=== PATIENT | male | born 1945 | race Caucasian/White ===

== ENCOUNTER 2018-02-28 08:54 | Emergency (ER) | payer MEDICARE, OTHER ==
[~2018-02-28] VITALS: Ht 172.7 cm; Wt 90.0 kg
[2018-02-28 09:08] VITALS: TEMP 98.7
[2018-02-28 09:34] LABS: BASO % 0.3 % (0.0-2.0); EOS # 0.1 (0.0-0.7); EOS % 0.4 % (0-4.0); GRAN # 12.7 (1.4-6.5); GRAN % 82.2 % (42.2-75.2); HEMATOCRIT 39.8 % (42.0-52.0); HEMOGLOBIN 13.3 g/dl (13.5-18.0); LYMPH # 1.1 (1.2-3.4); MEAN CELL VOLUME 94 fl (80.0-100.0); MEAN CORPUSCULAR HEMOGLOBIN 31 pg (27.0-31.0); MEAN CORPUSCULAR HGB CONC 33 g/dl (33.0-37.0); MEAN PLATELET VOLUME 10.3 fl (7.4-10.4); MONO # 1.5 (0.1-0.6); MONO % 9.7 % (1.7-9.3); PLATELET COUNT 178 K/mm3 (130-400); RED BLOOD COUNT 4.23 M/mm3 (4.20-5.60); REDCELL DISTRIBUTION WIDTH-CV 15.6 % (11.5-14.5)
[2018-02-28] MEDS ORDERED: LASIX 40MG TABL40 MG PO (09:38)
[2018-02-28] MEDS ORDERED: PRINIVIL40 MG PO (09:39)
[2018-02-28] MEDS ORDERED: LEVOXYL0.15 MG PO (09:39)
[2018-02-28] MEDS ORDERED: ZOCOR 20MG20 MG PO (09:39)
[2018-02-28] MEDS ORDERED: GLUCOPHAGE500 MG/TAB PO (09:40)
[2018-02-28] MEDS ORDERED: ARAVA 20MG TABL20 MG PO (09:40)
[2018-02-28] MEDS ORDERED: LAMISIL250 M1 (09:40)
[2018-02-28] MEDS ORDERED: AMBIEN CR 12.12.5 MG PO (09:41)
[2018-02-28] MEDS ORDERED: DOLOBID500 MG (09:41)
[2018-02-28 09:50] LABS: ALANINE AMINOTRANSFERASE 29 U/L (21-72); ALBUMIN 3.5 gm/dL (3.5-5.0); ALKALINE PHOSPHATASE 51 U/L (50-136); ANION GAP 11 mmol/L (7-16); AST,SGOT 35 U/L (15-37); BILIRUBIN,TOTAL 0.6 mg/dL (0.0-1.0); BLOOD UREA NITROGEN 15 mg/dL (9-20); C-REACTIVE PROTEIN 3.4 mg/dL (0.0-0.9); CALCIUM 9.2 mg/dL (8.4-10.2); CARBON DIOXIDE 24 mmol/L (22-30); CHLORIDE 106 mmol/L (98-107); CREATININE, serum 0.86 mg/dL (0.66-1.25); GLUCOSE 134 mg/dL (74-106); POTASSIUM 3.7 mmol/L (3.4-5.0); SODIUM 141 mmol/L (137-145); TOTAL PROTEIN 6.4 gm/dL (6.4-8.2)
[2018-02-28 10:01] LABS: TROPONIN-I < 0.012 ng/mL (0.000-0.034)
[2018-02-28] MEDS ORDERED: LEVAQUIN 5500 MG/TA1 PO (12:23)
[2018-02-28] MEDS ORDERED: NORCO 325 MG-51 TAB PO (12:31)
[2018-02-28 13:03] VITALS: BP 128/71; PULSE 86
== END 2018-02-28 13:05 | disposition home or self-care (01) ==
LOC: COL.ER 08:54
PROVIDERS: Family Medicine
DX: J18.9 Pneumonia, unspecified organism (principal); Z79.84 Long term (current) use of oral hypoglycemic drugs
CPT/HCPCS: J0696; J2930